=== PATIENT | female | born 1945 | race Caucasian/White ===

== ENCOUNTER 2020-09-21 14:28 | Inpatient (IN) | payer MEDICARE ==
[~2020-09-21] VITALS: Ht 160 cm; Wt 92.3 kg
[~2020-09-21 14:28] MED LIST: FERR325T3 PO; LEVO150T5 PO; METO50TA6 PO; NAPR1TAB25 PO; NAPR220T70 PO; SIMV40TA18 PO; TRIA1TAB3 PO
[2020-09-21] MEDS ORDERED: fentaNYL PF VIAL 100 MCG/2 ML VIAL IVP ONE (15:15)
[2020-09-21] MEDS ORDERED: IV NORMAL SALINE 1000ML BAG 1,000 ML IV ONE (15:15)
[2020-09-21 15:29] LABS: BASO # 0.1 x10^3/uL (0.0-0.2); BASO % 1 % (0-3); EOS # 0.2 x10^3/uL (0.0-0.7); EOS % 2 % (0-3); HEMATOCRIT 47.2 % (36.0-47.0); HEMOGLOBIN 16.2 g/dL (12.0-15.5); LYMPH # 1.7 x10^3/uL (1.0-4.8); LYMPH % 24 % (24-48); MEAN CORPUSCULAR HEMOGLOBIN 32 pg (25-35); MEAN CORPUSCULAR HGB CONC 34 g/dL (31-37); MEAN CORPUSCULAR VOLUME 94 fL (79-100); MONO # 0.5 x10^3/uL (0.0-1.1); MONO % 8 % (0-9); NEUT # 4.5 x10^3/uL (1.8-7.7); NEUT % 65 % (31-73); PLATELET COUNT 191 x10^3/uL (140-400); RED BLOOD COUNT 5.01 x10^6/uL (3.50-5.40); RED CELL DISTRIBUTION WIDTH 12.5 % (11.5-14.5); WHITE BLOOD COUNT 6.9 x10^3/uL (4.0-11.0)
[2020-09-21 15:45] LABS: CALCIUM 9.8 mg/dL (8.5-10.1); CREATININE 1.1 mg/dL (0.6-1.0); GFR 48.2; POTASSIUM 3.8 mmol/L (3.5-5.1)
[2020-09-21 15:51] LABS: ALBUMIN 4.1 g/dL (3.4-5.0); ALBUMIN/GLOBULIN RATIO 1.1 (1.0-1.7); MAGNESIUM 2.1 mg/dL (1.8-2.4)
[2020-09-21] MEDS ORDERED: IOHEXOL 240 MG/ML 50ML VIAL. PO ONE (16:15)
[2020-09-21] MEDS ORDERED: IOHEXOL 300 MG/ML 100ML VIAL. IV ONE (16:15)
[2020-09-21] MEDS ORDERED: CONTRAST GIVEN. MC PRN (16:30)
[2020-09-21] MEDS ORDERED: MORPHINE SULFATE 4 MG/ML VIAL. IV ONE (17:15)
[2020-09-21] MEDS ORDERED: MORPHINE SULFATE 4 MG/ML VIAL. ONE (17:17)
--- NOTE | 2020-09-21 17:28 | PHYS DOC ---
Past Medical History Past Medical History: High Cholesterol, Hypertension, Hypothyroid Past Surgical History: Other Additional Past Surgical Histo: HEART STENT, COLON/ABDOMINAL SURGERY Smoking Status: Current Every Day Smoker Alcohol Use: Occasionally General Adult EDM: Chief Complaint: ABDOMINAL PAIN HPI: HPI: Patient is a 75 year old female who presented to ER for evaluation of abdominal pain started today. Patient feels nauseous but no vomiting. Patient has history of abdominal surgery in the past, had obstruction. Patient denies any fever, no chest pain, no COVID-19 infection exposure. Review of Systems: Review of Systems: Constitutional: Denies fever or chills. [] Eyes: Denies change in visual acuity. [] HENT: Denies nasal congestion or sore throat. [] Respiratory: Denies cough or shortness of breath. [] Cardiovascular: Denies chest pain or edema. [] GI: Positive abdominal pain, nausea, no vomiting : Denies dysuria. [] Musculoskeletal: Denies back pain or joint pain. [] Integument: Denies rash. [] Neurologic: Denies headache, focal weakness or sensory changes. [] Endocrine: Denies polyuria or polydipsia. [] Lymphatic: Denies swollen glands. [] Psychiatric: Denies depression or anxiety. [] Heart Score: Risk Factors: Risk Factors: DM, Current or recent (<one month) smoker, HTN, HLP, family history of CAD, obesity. Risk Scores: Score 0 - 3: 2.5% MACE over next 6 weeks - Discharge Home Score 4 - 6: 20.3% MACE over next 6 weeks - Admit for Clinical Observation Score 7 - 10: 72.7% MACE over next 6 weeks - Early Invasive Strategies Current Medications: Current Medications Medications (Trade) Dose Ordered Sig/Sushma Start Time Stop Time Status Last Admin Dose Admin Fentanyl Citrate (Fentanyl 2ml Vial) 50 mcg 1X ONCE 09/21/20 15:15 09/21/20 15:16 DC 09/21/20 15:29 50 MCG Info (CONTRAST GIVEN -- Rx MONITORING) 1 each PRN DAILY PRN 09/21/20 16:30 09/23/20 16:29 Iohexol (Omnipaque 240 Mg/ml) 30 ml 1X ONCE 09/21/20 16:15 09/21/20 16:18 DC 09/21/20 16:15 30 ML Iohexol (Omnipaque 300 Mg/ml) 60 ml 1X ONCE 09/21/20 16:15 09/21/20 16:18 DC 09/21/20 16:15 60 ML Morphine Sulfate (Morphine Sulfate) 4 mg STK-MED ONCE 09/21/20 17:17 09/21/20 17:17 DC Sodium Chloride 1,000 ml @ 1,000 mls/hr 1X ONCE 09/21/20 15:15 09/21/20 16:14 DC 09/21/20 15:28 1,000 MLS/HR Allergies: Allergies: Allergies Coded Allergies Type Severity Reaction Last Updated Verified No Known Drug Allergies 09/05/17 No Physical Exam: PE: Constitutional: Well developed, well nourished, no acute distress, non-toxic appearance. [] HENT: Normocephalic, atraumatic, bilateral external ears normal, oropharynx moist, no oral exudates, nose normal. [] Eyes: PERRLA, EOMI, conjunctiva normal, no discharge. [] Neck: Normal range of motion, no tenderness, supple, no stridor. [] Cardiovascular:Heart rate regular rhythm, no murmur [] Lungs & Thorax: Bilateral breath sounds clear to auscultation [] Abdomen: soft, There is tenderness to palpation in periumbillical area, hyperactive bowel sound, no masses, no pulsatile masses. [] Skin: Warm, dry, no erythema, no rash. [] Back: No tenderness, no CVA tenderness. [] Extremities: No tenderness, no cyanosis, no clubbing, ROM intact, no edema. [] Neurologic: Alert and oriented X 3, normal motor function, normal sensory f unction, no focal deficits noted. [] Psychologic: Affect normal, judgement normal, mood normal. [] Current Patient Data: Labs: Laboratory Tests Test 09/21/20 15:06 White Blood Count 6.9 x10^3/uL (4.0-11.0) Red Blood Count 5.01 x10^6/uL (3.50-5.40) Hemoglobin 16.2 g/dL (12.0-15.5) H Hematocrit 47.2 % (36.0-47.0) H Mean Corpuscular Volume 94 fL (79-100) Mean Corpuscular Hemoglobin 32 pg (25-35) Mean Corpuscular Hemoglobin Concent 34 g/dL (31-37) Red Cell Distribution Width 12.5 % (11.5-14.5) Platelet Count 191 x10^3/uL (140-400) Neutrophils (%) (Auto) 65 % (31-73) Lymphocytes (%) (Auto) 24 % (24-48) Monocytes (%) (Auto) 8 % (0-9) Eosinophils (%) (Auto) 2 % (0-3) Basophils (%) (Auto) 1 % (0-3) Neutrophils # (Auto) 4.5 x10^3/uL (1.8-7.7) Lymphocytes # (Auto) 1.7 x10^3/uL (1.0-4.8) Monocytes # (Auto) 0.5 x10^3/uL (0.0-1.1) Eosinophils # (Auto) 0.2 x10^3/uL (0.0-0.7) Basophils # (Auto) 0.1 x10^3/uL (0.0-0.2) Sodium Level 138 mmol/L (136-145) Potassium Level 3.8 mmol/L (3.5-5.1) Chloride Level 102 mmol/L (98-107) Carbon Dioxide Level 30 mmol/L (21-32) Anion Gap 6 (6-14) Blood Urea Nitrogen 22 mg/dL (7-20) H Creatinine 1.1 mg/dL (0.6-1.0) H Estimated GFR (Cockcroft-Gault) 48.2 BUN/Creatinine Ratio 20 (6-20) Glucose Level 98 mg/dL (70-99) Calcium Level 9.8 mg/dL (8.5-10.1) Magnesium Level 2.1 mg/dL (1.8-2.4) Total Bilirubin 1.0 mg/dL (0.2-1.0) Aspartate Amino Transferase (AST) 46 U/L (15-37) H Alanine Aminotransferase (ALT) 54 U/L (14-59) Alkaline Phosphatase 70 U/L (46-116) Total Protein 8.0 g/dL (6.4-8.2) Albumin 4.1 g/dL (3.4-5.0) Albumin/Globulin Ratio 1.1 (1.0-1.7) Lipase 102 U/L (73-393) Laboratory Tests 09/21/20 15:06 Laboratory Tests 09/21/20 15:06 Vital Signs: Vital Signs Date Time Temp Pulse Resp B/P (MAP) Pulse Ox O2 Delivery O2 Flow Rate FiO2 09/21/20 16:46 62 170/75 (106) 97 Room Air 09/21/20 14:50 98.4 16 98.4 EKG: EKG: [] Radiology/Procedures: Radiology/Procedures: [][facility] [address] [place] [address] IMAGING REPORT Signed PATIENT: MARCELLE ARROYO ACCOUNT: [id number] : 1945 LOCATION: ER AGE: 75 SEX: F EXAM STATUS: REG ER ORD. PHYSICIAN: LEFTY VICENTE DO REASON: ABDOMINAL PAIN, HX OF OBSTRUCTION DUE TO ADHESION PROCEDURE: CT ABD PELV W/ORAL&IV CONTRAST CT scan of the abdomen and pelvis with contrast 09/21/2020 CLINICAL HISTORY: Abdominal pain. TECHNIQUE: After the oral administration of contrast and the intravenous administration of 60 cc of Isovue-370 only, contiguous, 2.5 mm axial sections were obtained through the abdomen and pelvis. One or more of the following individualized dose reduction techniques were utilized for this study: 1. Automated exposure control. 2. Adjustment of the mA and/or kV according to patient size. 3. Use of iterative reconstruction technique. FINDINGS: Comparison study is dated 08/28/2017. Images through the lung bases demonstrate minimal dependent subsegmental atelectasis bilaterally. Small largely calcified granulomas are seen scattered throughout the right middle and right lower lobe. These measure 2 mm to 4 mm in size. The liver parenchyma has a decreased attenuation consistent with fatty infiltration. The spleen, pancreas, adrenal glands and kidneys are within normal limits. Atherosclerotic calcification of the abdominal aorta is seen. The abdominal aorta tapers normally. Surgical clips are seen within the gallbladder fossa consistent with a cholecystectomy. No free fluid or free air is seen within the abdomen. An umbilical hernia is seen which contains nondilated transverse colon. It measures 6.2 cm in diameter. Dilatation of the jejunum is seen without definite evidence of bowel obstruction. The patient appears to be post hemicolectomy. An anastomosis is seen involving the ileum with the mid transverse colon. Images through the pelvis demonstrate the urinary bladder distended with urine. The patient appears to be post hysterectomy. No adnexal mass is seen. No free fluid is noted. Calcifications are seen within the left pelvis consistent with phleboliths. Minimal S-shaped curvature of the thoracolumbar spine is seen. Degenerative changes are seen involving lower thoracic and throughout the lumbar spine along with both hips. IMPRESSION: Dilated jejunal loops are seen within the mid/lower abdomen which could reflect an ileus. There is no evidence of bowel obstruction. No additional acute abnormality is seen. Electronically signed by: Kraig Cho MD (09/21/2020 5:34 PM) [id number] DICTATED and SIGNED BY: KRAIG CHO MD DATE: 09/21/20 [id number] 0 Course & Med Decision Making: Course & Med Decision Making Pertinent Labs and Imaging studies reviewed. (See chart for details) Patient is a 75-year-old female who presented to ER for evaluation abdominal pain. CT scan showed an ileus, no obstruction. Patient is still having a lot of abdominal pain despite pain medication. We will admit her to the hospital for pain control. Dragon Disclaimer: Dragon Disclaimer: This electronic medical record was generated, in whole or in part, using a voice recognition dictation system. Departure Departure Impression: Primary Impression: Abdominal pain Additional Impression: Ileus Disposition: 09 ADMITTED INPT THIS HOSP Admitting Physician: MARGARET (DR. MCCRAY) Condition: STABLE Referrals: LEFTY HEALY MD (PCP) LEFTY VICENTE DO Sep 21, 2020 17:28
--- NOTE | 2020-09-21 17:36 | RAD ---
CT scan of the abdomen and pelvis with contrast 09/21/2020 CLINICAL HISTORY: Abdominal pain. TECHNIQUE: After the oral administration of contrast and the intravenous administration of 60 cc of I sovue-370 only, contiguous, 2.5 mm axial sections were obtained through the abdomen and pelvis. One or more of the following individualized dose reduction techniques were utilized for this study: 1. Automated exposure control. 2. Adjustment of the mA and/or kV according to patient size. 3. Use of iterative reconstruction technique. FINDINGS: Comparison study is dated 08/28/2017. Images through the lung bases demonstrate minimal dependent subsegmental atelectasis bilaterally. Sma ll largely calcified granulomas are seen scattered throughout the right middle and right lower lobe. These measure 2 mm to 4 mm in size. The liver parenchyma has a decreased attenuation consistent with fatty infiltration. The spleen, panc reas, adrenal glands and kidneys are within normal limits. Atherosclerotic calcification of the abdominal aorta is seen. The abdominal aorta tapers normally. Lozano rgical clips are seen within the gallbladder fossa consistent with a cholecystectomy. No free fluid o r free air is seen within the abdomen. An umbilical hernia is seen which contains nondilated transver se colon. It measures 6.2 cm in diameter. Dilatation of the jejunum is seen without definite evidence of bowel obstruction. The patient appears to be post hemicolectomy. An anastomosis is seen involving the ileum with the mid transverse colon. Images through the pelvis demonstrate the urinary bladder distended with urine. The patient appears t o be post hysterectomy. No adnexal mass is seen. No free fluid is noted. Calcifications are seen with in the left pelvis consistent with phleboliths. Minimal S-shaped curvature of the thoracolumbar spine is seen. Degenerative changes are seen involving lower thoracic and throughout the lumbar spine talita g with both hips. IMPRESSION: Dilated jejunal loops are seen within the mid/lower abdomen which could reflect an ileus. There is no evidence of bowel obstruction. No additional acute abnormality is seen. Electronically signed by: Kraig Cho MD (09/21/2020 5:34 PM) [id number]
[2020-09-21] MEDS ORDERED: ONDANSETRON PF 4 MG/2 ML VIAL. IV PRN (18:30)
[2020-09-21 20:10] VITALS: BP 122/54
[2020-09-21] MEDS: IV NORMAL SALINE 1000ML BAG 1,000 ML IV SCH (20:49)
[2020-09-21 23:15] VITALS: BP 102/61
[2020-09-22 03:16] VITALS: BP 114/64
[2020-09-22 07:08] VITALS: BP 119/64
--- NOTE | 2020-09-22 08:17 | PDOC1 ---
History and Physical Date of Service: DOS: DATE: 09/22/20 TIME: 08:14 Chief Complaint: Chief Complain: Abdominal pain History of Present Illness: HPI: 75 year old female who presented to ER for evaluation of abdominal pain started today. Patient feels nauseous but no vomiting. Patient has history of abdominal surgery in the past, had obstruction. Patient denies any fever, no chest pain, no COVID-19 infection exposure. Past Medical/Surgical History: PMH/PSH: Past Medical History: High Cholesterol, Hypertension, Hypothyroid Past Surgical History: HEART STENT, COLON/ABDOMINAL SURGERY Allergies: Allergies: Coded Allergies: No Known Drug Allergies (Unverified , 09/05/17) Family History: Family History: Reviewed with lung cancer and kidney disease in the family Social History: Social History: Smoking Status: Current Every Day Smoker Alcohol Use: Occasionally Current Medications: Current Medications Current Medications Sodium Chloride 1,000 ml @ 1,000 mls/hr 1X ONCE IV Last administered on 09/21/20at 15:28; Start 09/21/20 at 15:15; Stop 09/21/20 at 16:14; Status DC Fentanyl Citrate (Fentanyl 2ml Vial) 50 mcg 1X ONCE IVP Last administered on 09/21/20at 15:29; Start 09/21/20 at 15:15; Stop 09/21/20 at 15:16; Status DC Iohexol (Omnipaque 240 Mg/ml) 30 ml 1X ONCE PO Last administered on 09/21/20at 16:15; Start 09/21/20 at 16:15; Stop 09/21/20 at 16:18; Status DC Iohexol (Omnipaque 300 Mg/ml) 60 ml 1X ONCE IV Last administered on 09/21/20at 16:15; Start 09/21/20 at 16:15; Stop 09/21/20 at 16:18; Status DC Info (CONTRAST GIVEN -- Rx MONITORING) 1 each PRN DAILY PRN MC SEE COMMENTS; Start 09/21/20 at 16:30; Stop 09/23/20 at 16:29 Morphine Sulfate (Morphine Sulfate) 4 mg 1X ONCE IV Last administered on 09/21/20at 17:19; Start 09/21/20 at 17:15; Stop 09/21/20 at 17:16; Status DC Morphine Sulfate (Morphine Sulfate) 4 mg STK-MED ONCE .ROUTE ; Start 09/21/20 at 17:17; Stop 09/21/20 at 17:17; Status DC Ondansetron HCl (Zofran) 4 mg PRN Q8HRS PRN IV NAUSEA/VOMITING; Start 09/21/20 at 18:30; Stop 09/22/20 at 18:29 Morphine Sulfate (Morphine Sulfate) 4 mg PRN Q2HR PRN IV PAIN; Start 09/21/20 at 18:30; Stop 09/25/20 at 09:00 Sodium Chloride 1,000 ml @ 75 mls/hr [id number] IV Last administered on 09/21/20at 20:49; Start 09/21/20 at 18:30; Stop 09/22/20 at 18:29 Active Scripts Active Reported Triamterene-Hctz 37.5-25 Mg Tb (Triamterene/Hydrochlorothiazid) 1 Each Tablet 1 Tab PO DAILY Check BP daily, may resume if BP 120/80. Follow up with Primary Care doctor. Metoprolol Tartrate 50 Mg Tablet 50 Mg PO DAILY Check BP daily, may resume if BP 120/80. Follow up with Primary Care doctor. Simvastatin 40 Mg Tablet 40 Mg PO HS LAST DOSE GIVEN: DATE:04/18/16 TIME:9:00 p.m. NEXT DOSE DUE: DATE:04/19/16 TIME:9:00 p.m. Levothyroxine Sodium 150 Mcg Tablet 150 Mcg PO DAILYAC LAST DOSE GIVEN: DATE:04/19/16 TIME:7:30 a.m. NEXT DOSE DUE: DATE:04/20/16 TIME:7:30 a.m. ROS: Review of Systems Review of System REVIEW OF SYSTEMS: GENERAL: Denies weakness SKIN: No bruising, hair changes or rashes. EYES: No blurred, double or loss of vision. NOSE AND THROAT: No history of nosebleeds, hoarseness or sore throat. HEART: No history of palpitations, chest pain or shortness of breath on exertion. LUNGS: Denies cough, hemoptysis, wheezing or shortness of breath. GASTROINTESTINAL: Denies changes in appetite, nausea, vomiting, diarrhea or constipation. GENITOURINARY: No history of frequency, urgency, hesitancy or nocturia. NEUROLOGIC: Denies history of numbness, tingling, or tremor. PSYCHIATRIC: No history of panic, anxiety or depression. ENDOCRINE: No history of heat or cold intolerance, polyuria or polydipsia. EXTREMITIES: Denies joint pain, pain on walking or stiffness. Physical Exam: Vital Signs: Vital Signs Date Time Temp Pulse Resp B/P (MAP) Pulse Ox O2 Delivery O2 Flow Rate FiO2 09/22/20 07:08 97.7 63 18 119/64 (82) 93 Room Air 97.7 Physcial Exam: GEN: No apparent distress. Alert and oriented HEENT: Normal cephalic, atraumatic, external auditory canals are patent EYES: Extraocular muscles are intact, pupil are equally round and reactive to light and accommodation MUSCULOSKELETAL: Well developed , well nourished, good range of motion ENDOCRINE: No thyromegaly was palpated LYMPHATICS: No cervical chain or axillary nodes were noted HEMATOPOIETIC: No bruising NECK: Supple, no JVD, no thyromegaly was noted LUNGS: Clear to auscultation in all lung bradshaw without rhonchi or wheezing HEART: RRR, S!, S2 present. Peripheral pulses intact, no obvious murmurs noted ABDOMEN: Soft, nontender. Positive bowel sounds, no organomegaly, normal bowel sounds EXTREMITIES: Without clubbing, cyanosis, or edema. Pedal pulses intact. Negative Homans sign NEUROLOGIC: Normal speech and tone. A&O x 3, moves all extremities, no obvious focal deficits PSYCHIATRIC: Normal affect, normal mood. Stable SKIN: No ulcerations or rashes, good skin turgor, no jaundice VASCULAR: Good capillary refill, neurovascular bundle appears to be intact Labs: Labs: Laboratory Tests Test 09/21/20 15:06 09/21/20 21:04 White Blood Count 6.9 x10^3/uL (4.0-11.0) Red Blood Count 5.01 x10^6/uL (3.50-5.40) Hemoglobin 16.2 g/dL (12.0-15.5) Hematocrit 47.2 % (36.0-47.0) Mean Corpuscular Volume 94 fL (79-100) Mean Corpuscular Hemoglobin 32 pg (25-35) Mean Corpuscular Hemoglobin Concent 34 g/dL (31-37) Red Cell Distribution Width 12.5 % (11.5-14.5) Platelet Count 191 x10^3/uL (140-400) Neutrophils (%) (Auto) 65 % (31-73) Lymphocytes (%) (Auto) 24 % (24-48) Monocytes (%) (Auto) 8 % (0-9) Eosinophils (%) (Auto) 2 % (0-3) Basophils (%) (Auto) 1 % (0-3) Neutrophils # (Auto) 4.5 x10^3/uL (1.8-7.7) Lymphocytes # (Auto) 1.7 x10^3/uL (1.0-4.8) Monocytes # (Auto) 0.5 x10^3/uL (0.0-1.1) Eosinophils # (Auto) 0.2 x10^3/uL (0.0-0.7) Basophils # (Auto) 0.1 x10^3/uL (0.0-0.2) Sodium Level 138 mmol/L (136-145) Potassium Level 3.8 mmol/L (3.5-5.1) Chloride Level 102 mmol/L (98-107) Carbon Dioxide Level 30 mmol/L (21-32) Anion Gap 6 (6-14) Blood Urea Nitrogen 22 mg/dL (7-20) Creatinine 1.1 mg/dL (0.6-1.0) Estimated GFR (Cockcroft-Gault) 48.2 BUN/Creatinine Ratio 20 (6-20) Glucose Level 98 mg/dL (70-99) Calcium Level 9.8 mg/dL (8.5-10.1) Magnesium Level 2.1 mg/dL (1.8-2.4) Total Bilirubin 1.0 mg/dL (0.2-1.0) Aspartate Amino Transf (AST/SGOT) 46 U/L (15-37) Alanine Aminotransferase (ALT/SGPT) 54 U/L (14-59) Alkaline Phosphatase 70 U/L (46-116) Total Protein 8.0 g/dL (6.4-8.2) Albumin 4.1 g/dL (3.4-5.0) Albumin/Globulin Ratio 1.1 (1.0-1.7) Lipase 102 U/L (73-393) SARS-CoV-2 Antigen (Rapid) Negative (NEGATIVE) Laboratory Tests Test 09/21/20 15:06 09/21/20 21:04 White Blood Count 6.9 x10^3/uL (4.0-11.0) Red Blood Count 5.01 x10^6/uL (3.50-5.40) Hemoglobin 16.2 g/dL (12.0-15.5) Hematocrit 47.2 % (36.0-47.0) Mean Corpuscular Volume 94 fL (79-100) Mean Corpuscular Hemoglobin 32 pg (25-35) Mean Corpuscular Hemoglobin Concent 34 g/dL (31-37) Red Cell Distribution Width 12.5 % (11.5-14.5) Platelet Count 191 x10^3/uL (140-400) Neutrophils (%) (Auto) 65 % (31-73) Lymphocytes (%) (Auto) 24 % (24-48) Monocytes (%) (Auto) 8 % (0-9) Eosinophils (%) (Auto) 2 % (0-3) Basophils (%) (Auto) 1 % (0-3) Neutrophils # (Auto) 4.5 x10^3/uL (1.8-7.7) Lymphocytes # (Auto) 1.7 x10^3/uL (1.0-4.8) Monocytes # (Auto) 0.5 x10^3/uL (0.0-1.1) Eosinophils # (Auto) 0.2 x10^3/uL (0.0-0.7) Basophils # (Auto) 0.1 x10^3/uL (0.0-0.2) Sodium Level 138 mmol/L (136-145) Potassium Level 3.8 mmol/L (3.5-5.1) Chloride Level 102 mmol/L (98-107) Carbon Dioxide Level 30 mmol/L (21-32) Anion Gap 6 (6-14) Blood Urea Nitrogen 22 mg/dL (7-20) Creatinine 1.1 mg/dL (0.6-1.0) Estimated GFR (Cockcroft-Gault) 48.2 BUN/Creatinine Ratio 20 (6-20) Glucose Level 98 mg/dL (70-99) Calcium Level 9.8 mg/dL (8.5-10.1) Magnesium Level 2.1 mg/dL (1.8-2.4) Total Bilirubin 1.0 mg/dL (0.2-1.0) Aspartate Amino Transf (AST/SGOT) 46 U/L (15-37) Alanine Aminotransferase (ALT/SGPT) 54 U/L (14-59) Alkaline Phosphatase 70 U/L (46-116) Total Protein 8.0 g/dL (6.4-8.2) Albumin 4.1 g/dL (3.4-5.0) Albumin/Globulin Ratio 1.1 (1.0-1.7) Lipase 102 U/L (73-393) SARS-CoV-2 Antigen (Rapid) Negative (NEGATIVE) Images: Images CT abdomen pelvis IMPRESSION: Dilated jejunal loops are seen within the mid/lower abdomen which could reflect an ileus. There is no evidence of bowel obstruction. No additional acute abnormality is seen. Assessment/Plan Assessment/Plan Acute abdominal pain due to ileus versus SBO Polycythemia Prerenal azotemia ESPERANZA due to vasomotor nephropathy Admit to medicine for further management General surgery consult N.p.o. Continue IV fluids Serial abdominal exams Lovenox for DVT prophylaxis Protonix GI prophylaxis ADA diet Full code Discussed with RN and SW Disposition pending surgical evaluation Surrogate decision maker is the Justifications for Admission Other Justification CHRISTY TELLO MD Sep 22, 2020 08:16
--- NOTE | 2020-09-22 08:46 | PDOC2 ---
KORINA SHELTON [employer]URING CHIEF ENGINEER 09/22/20 0846: CONSULT Date of Consult Date of Consult DATE: 09/22/20 TIME: 08:40 Reason for Consult Reason for Consult: ileus Referring Physician Referring Physician: ER Identification/Chief Complaint Chief Complaint abdominal pain Source Source: Chart review, Patient History of Present Illness Reason for Visit: Admitted with acute abdominal pain, upper abdomen. Some constipation, did have a stool yesterday AM. No nausea or vomiting Currently does feel better no flatus hx of colon resection, has had obstruction requiring ng decompression Past Medical History Cardiovascular: HTN, Hyperlipidemia Endocrine: Hypothyroidism Past Surgical History Past Surgical History: Hernia Repair, Hysterectomy, Colon Resection Family History Family History: Cancer, Diabetes Social History ALCOHOL: rare Drugs: None Current Problem List Problem List Problems Medical Problems: (1) Abdominal pain Status: Acute (2) Ileus Status: Acute Current Medications Current Medications Current Medications Sodium Chloride 1,000 ml @ 1,000 mls/hr 1X ONCE IV Last administered on 09/21/20at 15:28; Start 09/21/20 at 15:15; Stop 09/21/20 at 16:14; Status DC Fentanyl Citrate (Fentanyl 2ml Vial) 50 mcg 1X ONCE IVP Last administered on 09/21/20at 15:29; Start 09/21/20 at 15:15; Stop 09/21/20 at 15:16; Status DC Iohexol (Omnipaque 240 Mg/ml) 30 ml 1X ONCE PO Last administered on 09/21/20at 16:15; Start 09/21/20 at 16:15; Stop 09/21/20 at 16:18; Status DC Iohexol (Omnipaque 300 Mg/ml) 60 ml 1X ONCE IV Last administered on 09/21/20at 16:15; Start 09/21/20 at 16:15; Stop 09/21/20 at 16:18; Status DC Info (CONTRAST GIVEN -- Rx MONITORING) 1 each PRN DAILY PRN MC SEE COMMENTS; Start 09/21/20 at 16:30; Stop 09/23/20 at 16:29 Morphine Sulfate (Morphine Sulfate) 4 mg 1X ONCE IV Last administered on 09/21/20at 17:19; Start 09/21/20 at 17:15; Stop 09/21/20 at 17:16; Status DC Morphine Sulfate (Morphine Sulfate) 4 mg STK-MED ONCE .ROUTE ; Start 09/21/20 at 17:17; Stop 09/21/20 at 17:17; Status DC Ondansetron HCl (Zofran) 4 mg PRN Q8HRS PRN IV NAUSEA/VOMITING; Start 09/21/20 at 18:30; Stop 09/22/20 at 18:29 Morphine Sulfate (Morphine Sulfate) 4 mg PRN Q2HR PRN IV PAIN; Start 09/21/20 at 18:30; Stop 09/25/20 at 09:00 Sodium Chloride 1,000 ml @ 75 mls/hr [id number] IV Last administered on 09/21/20at 20:49; Start 09/21/20 at 18:30; Stop 09/22/20 at 18:29 Active Scripts Active Reported Triamterene-Hctz 37.5-25 Mg Tb (Triamterene/Hydrochlorothiazid) 1 Each Tablet 1 Tab PO DAILY Check BP daily, may resume if BP 120/80. Follow up with Primary Care doctor. Metoprolol Tartrate 50 Mg Tablet 50 Mg PO DAILY Check BP daily, may resume if BP 120/80. Follow up with Primary Care doctor. Simvastatin 40 Mg Tablet 40 Mg PO HS LAST DOSE GIVEN: DATE:04/18/16 TIME:9:00 p.m. NEXT DOSE DUE: DATE:04/19/16 TIME:9:00 p.m. Levothyroxine Sodium 150 Mcg Tablet 150 Mcg PO DAILYAC LAST DOSE GIVEN: DATE:04/19/16 TIME:7:30 a.m. NEXT DOSE DUE: DATE:04/20/16 TIME:7:30 a.m. Allergies Allergies: Coded Allergies: No Known Drug Allergies (Unverified , 09/05/17) ROS General: No: Chills, Other (fevers) PSYCHOLOGICAL ROS: No: Anxiety, Depression Eyes: No Blurry vision, No Double vision HEENT: No: Heacaches, Sore Throat Hematological and Lymphatic: No: Bleeding Problems, Blood Clots Respiratory: No: Cough, Shortness of breath Cardiovascular: No Chest Pain, No Palpitations Gastrointestinal: Yes Other (see hpi) Genitourinary: No Dysuria, No Hematuria Musculoskeletal: No Joint Pain, No Muscle Pain Neurological: No Impaired Coord/balance, No Numbness/Tingling Skin: No Pruritus, No Rash Physical Exam General: Alert, Oriented X3, Cooperative HEENT: Atraumatic, PERRLA Lungs: Clear to auscultation, Normal air movement Heart: Regular rate, Normal S1, Normal S2 Abdomen: Soft, No tenderness, No hepatosplenomegaly Extremities: No clubbing, No cyanosis Skin: No rashes, No breakdown Neuro: Normal gait, Normal speech Psych/Mental Status: Mental status NL, Mood NL MUSCULOSKELETAL: No deformity, No swelling Vitals VITALS Vital Signs Date Time Temp Pulse Resp B/P (MAP) Pulse Ox O2 Delivery O2 Flow Rate FiO2 09/22/20 07:08 97.7 63 18 119/64 (82) 93 Room Air 97.7 Labs Labs Laboratory Tests Test 09/21/20 15:06 09/21/20 21:04 White Blood Count 6.9 x10^3/uL (4.0-11.0) Red Blood Count 5.01 x10^6/uL (3.50-5.40) Hemoglobin 16.2 g/dL (12.0-15.5) Hematocrit 47.2 % (36.0-47.0) Mean Corpuscular Volume 94 fL (79-100) Mean Corpuscular Hemoglobin 32 pg (25-35) Mean Corpuscular Hemoglobin Concent 34 g/dL (31-37) Red Cell Distribution Width 12.5 % (11.5-14.5) Platelet Count 191 x10^3/uL (140-400) Neutrophils (%) (Auto) 65 % (31-73) Lymphocytes (%) (Auto) 24 % (24-48) Monocytes (%) (Auto) 8 % (0-9) Eosinophils (%) (Auto) 2 % (0-3) Basophils (%) (Auto) 1 % (0-3) Neutrophils # (Auto) 4.5 x10^3/uL (1.8-7.7) Lymphocytes # (Auto) 1.7 x10^3/uL (1.0-4.8) Monocytes # (Auto) 0.5 x10^3/uL (0.0-1.1) Eosinophils # (Auto) 0.2 x10^3/uL (0.0-0.7) Basophils # (Auto) 0.1 x10^3/uL (0.0-0.2) Sodium Level 138 mmol/L (136-145) Potassium Level 3.8 mmol/L (3.5-5.1) Chloride Level 102 mmol/L (98-107) Carbon Dioxide Level 30 mmol/L (21-32) Anion Gap 6 (6-14) Blood Urea Nitrogen 22 mg/dL (7-20) Creatinine 1.1 mg/dL (0.6-1.0) Estimated GFR (Cockcroft-Gault) 48.2 BUN/Creatinine Ratio 20 (6-20) Glucose Level 98 mg/dL (70-99) Calcium Level 9.8 mg/dL (8.5-10.1) Magnesium Level 2.1 mg/dL (1.8-2.4) Total Bilirubin 1.0 mg/dL (0.2-1.0) Aspartate Amino Transf (AST/SGOT) 46 U/L (15-37) Alanine Aminotransferase (ALT/SGPT) 54 U/L (14-59) Alkaline Phosphatase 70 U/L (46-116) Total Protein 8.0 g/dL (6.4-8.2) Albumin 4.1 g/dL (3.4-5.0) Albumin/Globulin Ratio 1.1 (1.0-1.7) Lipase 102 U/L (73-393) SARS-CoV-2 Antigen (Rapid) Negative (NEGATIVE) Laboratory Tests Test 09/21/20 15:06 09/21/20 21:04 White Blood Count 6.9 x10^3/uL (4.0-11.0) Red Blood Count 5.01 x10^6/uL (3.50-5.40) Hemoglobin 16.2 g/dL (12.0-15.5) Hematocrit 47.2 % (36.0-47.0) Mean Corpuscular Volume 94 fL (79-100) Mean Corpuscular Hemoglobin 32 pg (25-35) Mean Corpuscular Hemoglobin Concent 34 g/dL (31-37) Red Cell Distribution Width 12.5 % (11.5-14.5) Platelet Count 191 x10^3/uL (140-400) Neutrophils (%) (Auto) 65 % (31-73) Lymphocytes (%) (Auto) 24 % (24-48) Monocytes (%) (Auto) 8 % (0-9) Eosinophils (%) (Auto) 2 % (0-3) Basophils (%) (Auto) 1 % (0-3) Neutrophils # (Auto) 4.5 x10^3/uL (1.8-7.7) Lymphocytes # (Auto) 1.7 x10^3/uL (1.0-4.8) Monocytes # (Auto) 0.5 x10^3/uL (0.0-1.1) Eosinophils # (Auto) 0.2 x10^3/uL (0.0-0.7) Basophils # (Auto) 0.1 x10^3/uL (0.0-0.2) Sodium Level 138 mmol/L (136-145) Potassium Level 3.8 mmol/L (3.5-5.1) Chloride Level 102 mmol/L (98-107) Carbon Dioxide Level 30 mmol/L (21-32) Anion Gap 6 (6-14) Blood Urea Nitrogen 22 mg/dL (7-20) Creatinine 1.1 mg/dL (0.6-1.0) Estimated GFR (Cockcroft-Gault) 48.2 BUN/Creatinine Ratio 20 (6-20) Glucose Level 98 mg/dL (70-99) Calcium Level 9.8 mg/dL (8.5-10.1) Magnesium Level 2.1 mg/dL (1.8-2.4) Total Bilirubin 1.0 mg/dL (0.2-1.0) Aspartate Amino Transf (AST/SGOT) 46 U/L (15-37) Alanine Aminotransferase (ALT/SGPT) 54 U/L (14-59) Alkaline Phosphatase 70 U/L (46-116) Total Protein 8.0 g/dL (6.4-8.2) Albumin 4.1 g/dL (3.4-5.0) Albumin/Globulin Ratio 1.1 (1.0-1.7) Lipase 102 U/L (73-393) SARS-CoV-2 Antigen (Rapid) Negative (NEGATIVE) Assessment/Plan Assessment/Plan ileus bowel rest, observation MARIZA MIRANDA MD 09/25/20 0951: CONSULT Assessment/Plan Assessment/Plan Patient seen and examined by me. No nausea or vomiting. Minimal abd pain. Agree with Yaa's assessment and plan KORINA SHELTON [employer]IEF ENGINEER Sep 22, 2020 08:46 MARIZA MIRANDA MD Sep 25, 2020 09:51
--- NOTE | 2020-09-22 09:41 | NUR ---
SW following. Discussed with RN, pt from home, room air, NPO, Rapid COVID-19 negative. Pt on bowel rest. PT/OT being ordered. RN advised no SW needs at this time. SW will continue to follow.
[2020-09-22] MEDS: IV NORMAL SALINE 1000ML BAG 1,000 ML IV SCH (09:43)
[2020-09-22 10:21] VITALS: BP 137/64
[2020-09-22 14:22] VITALS: BP 116/68
[2020-09-22 19:15] VITALS: BP 130/64
[2020-09-22 22:56] VITALS: BP 128/62
[2020-09-23] MEDS: IV NORMAL SALINE 1000ML BAG 1,000 ML IV SCH ×2 (00:06→11:44)
[2020-09-23] MEDS: MORPHINE SULFATE 4 MG/ML VIAL. IV PRN ×3 (00:31→23:46)
[2020-09-23 02:45] VITALS: BP 118/66
[2020-09-23 07:00] VITALS: BP 122/61
[2020-09-23 11:00] VITALS: BP 119/64
--- NOTE | 2020-09-23 11:16 | PDOC ---
[facility] PROGRESS NOTE Date of Service DOS: DATE: 09/23/20 TIME: 11:14 Chief Complaint Chief Complaint Acute abdominal pain due to ileus versus SBO Polycythemia Prerenal azotemia ESPERANZA due to vasomotor nephropathy Admit to medicine for further management General surgery consult Advance diet as tolerated Continue IV fluids Serial abdominal exams Lovenox for DVT prophylaxis Protonix GI prophylaxis ADA diet Full code Discussed with RN and SW Disposition pending surgical evaluation Surrogate decision maker is the History of Present Illness History of Present Illness 09/23/2020 No acute events overnight. Patient remains afebrile. No bowel movements reported from nursing staff. No complaints voiced at this time. Will advance diet as tolerated. Currently tolerating. Patient's chart, labs, images were reviewed and discussed with RN 75 year old female who presented to ER for evaluation of abdominal pain started today. Patient feels nauseous but no vomiting. Patient has history of abdominal surgery in the past, had obstruction. Patient denies any fever, no chest pain, no COVID-19 infection exposure. Vitals/I&O Vitals/I&O: Vital Signs Date Time Temp Pulse Resp B/P (MAP) Pulse Ox O2 Delivery O2 Flow Rate FiO2 09/23/20 08:10 Room Air 09/23/20 07:00 98.2 64 18 122/61 (81) 93 98.2 I & O 09/22/20 09/22/20 09/23/20 15:00 23:00 07:00 Output Total 400 ml 250 ml Balance -400 ml -250 ml Physical Exam General: Alert, Oriented X3, Cooperative Heart: Regular rate, Normal S1, Normal S2 Abdomen: Soft, No tenderness, No hepatosplenomegaly Extremities: No clubbing, No cyanosis Skin: No rashes, No breakdown Assessment and Plan Assessmemt and Plan Problems Medical Problems: (1) Abdominal pain Status: Acute (2) Ileus Status: Acute Comment Review of Relevant I have reviewed the following items gurdeep (where applicable) has been applied. Medications: Current Medications Medications (Trade) Dose Ordered Sig/Sushma Route PRN Reason Start Time Stop Time Status Last Admin Dose Admin Sodium Chloride 1,000 ml @ 75 mls/hr [id number] IV 09/22/20 23:45 09/23/20 00:06 Justifications for Admission Other Justification CHRISTY TELLO MD Sep 23, 2020 11:16
--- NOTE | 2020-09-23 12:44 | PDOC ---
PROGRESS NOTES Date of Service DATE: 09/23/20 TIME: 12:43 Subjective Subjective had some pain yesterday, no nausea/vomiting, no flatus or stool Objective Objective Vital Signs Date Time Temp Pulse Resp B/P (MAP) Pulse Ox O2 Delivery O2 Flow Rate FiO2 09/23/20 11:00 98.3 68 18 119/64 (82) 95 Room Air 98.3 Intake and Output 09/23/20 07:00 Output Total 650 ml Balance -650 ml Output Urine Total 650 ml Physical Exam Abdomen: Soft, No tenderness Heart: Regular rate Extremities: No clubbing, No cyanosis General: Alert, Oriented X3 Neuro: Normal speech Psych/Mental Status: Mental status NL Assessment Assessment Problems Medical Problems: (1) Abdominal pain Status: Acute (2) Ileus Status: Acute Plan Plan of Care Continue supportive care, serial exam/xrays Comment Review of Relevant I have reviewed the following items gurdeep (where applicable) has been applied. Labs Laboratory Tests Test 09/21/20 15:06 09/21/20 21:04 White Blood Count 6.9 x10^3/uL (4.0-11.0) Red Blood Count 5.01 x10^6/uL (3.50-5.40) Hemoglobin 16.2 g/dL (12.0-15.5) Hematocrit 47.2 % (36.0-47.0) Mean Corpuscular Volume 94 fL (79-100) Mean Corpuscular Hemoglobin 32 pg (25-35) Mean Corpuscular Hemoglobin Concent 34 g/dL (31-37) Red Cell Distribution Width 12.5 % (11.5-14.5) Platelet Count 191 x10^3/uL (140-400) Neutrophils (%) (Auto) 65 % (31-73) Lymphocytes (%) (Auto) 24 % (24-48) Monocytes (%) (Auto) 8 % (0-9) Eosinophils (%) (Auto) 2 % (0-3) Basophils (%) (Auto) 1 % (0-3) Neutrophils # (Auto) 4.5 x10^3/uL (1.8-7.7) Lymphocytes # (Auto) 1.7 x10^3/uL (1.0-4.8) Monocytes # (Auto) 0.5 x10^3/uL (0.0-1.1) Eosinophils # (Auto) 0.2 x10^3/uL (0.0-0.7) Basophils # (Auto) 0.1 x10^3/uL (0.0-0.2) Sodium Level 138 mmol/L (136-145) Potassium Level 3.8 mmol/L (3.5-5.1) Chloride Level 102 mmol/L (98-107) Carbon Dioxide Level 30 mmol/L (21-32) Anion Gap 6 (6-14) Blood Urea Nitrogen 22 mg/dL (7-20) Creatinine 1.1 mg/dL (0.6-1.0) Estimated GFR (Cockcroft-Gault) 48.2 BUN/Creatinine Ratio 20 (6-20) Glucose Level 98 mg/dL (70-99) Calcium Level 9.8 mg/dL (8.5-10.1) Magnesium Level 2.1 mg/dL (1.8-2.4) Total Bilirubin 1.0 mg/dL (0.2-1.0) Aspartate Amino Transf (AST/SGOT) 46 U/L (15-37) Alanine Aminotransferase (ALT/SGPT) 54 U/L (14-59) Alkaline Phosphatase 70 U/L (46-116) Total Protein 8.0 g/dL (6.4-8.2) Albumin 4.1 g/dL (3.4-5.0) Albumin/Globulin Ratio 1.1 (1.0-1.7) Lipase 102 U/L (73-393) Thyroid Stimulating Hormone (TSH) 0.215 uIU/mL (0.358-3.74) SARS-CoV-2 Antigen (Rapid) Negative (NEGATIVE) Medications Current Medications Sodium Chloride 1,000 ml @ 1,000 mls/hr 1X ONCE IV Last administered on 09/21/20at 15:28; Start 09/21/20 at 15:15; Stop 09/21/20 at 16:14; Status DC Fentanyl Citrate (Fentanyl 2ml Vial) 50 mcg 1X ONCE IVP Last administered on 09/21/20at 15:29; Start 09/21/20 at 15:15; Stop 09/21/20 at 15:16; Status DC Iohexol (Omnipaque 240 Mg/ml) 30 ml 1X ONCE PO Last administered on 09/21/20at 16:15; Start 09/21/20 at 16:15; Stop 09/21/20 at 16:18; Status DC Iohexol (Omnipaque 300 Mg/ml) 60 ml 1X ONCE IV Last administered on 09/21/20at 16:15; Start 09/21/20 at 16:15; Stop 09/21/20 at 16:18; Status DC Info (CONTRAST GIVEN -- Rx MONITORING) 1 each PRN DAILY PRN MC SEE COMMENTS; Start 09/21/20 at 16:30; Stop 09/23/20 at 16:29 Morphine Sulfate (Morphine Sulfate) 4 mg 1X ONCE IV Last administered on 09/21/20at 17:19; Start 09/21/20 at 17:15; Stop 09/21/20 at 17:16; Status DC Morphine Sulfate (Morphine Sulfate) 4 mg STK-MED ONCE .ROUTE ; Start 09/21/20 at 17:17; Stop 09/21/20 at 17:17; Status DC Ondansetron HCl (Zofran) 4 mg PRN Q8HRS PRN IV NAUSEA/VOMITING; Start 09/21/20 at 18:30; Stop 09/22/20 at 18:29; Status DC Morphine Sulfate (Morphine Sulfate) 4 mg PRN Q2HR PRN IV PAIN Last administered on 09/23/20at 00:31; Start 09/21/20 at 18:30; Stop 09/25/20 at 09:00 Sodium Chloride 1,000 ml @ 75 mls/hr [id number] IV Last administered on 09/22/20at 09:43; Start 09/21/20 at 18:30; Stop 09/22/20 at 18:29; Status DC Sodium Chloride 1,000 ml @ 75 mls/hr [id number] IV Last administered on 09/23/20at 11:44; Start 09/22/20 at 23:45 Active Scripts Active Reported Triamterene-Hctz 37.5-25 Mg Tb (Triamterene/Hydrochlorothiazid) 1 Each Tablet 1 Tab PO DAILY Check BP daily, may resume if BP 120/80. Follow up with Primary Care doctor. Metoprolol Tartrate 50 Mg Tablet 50 Mg PO DAILY Check BP daily, may resume if BP 120/80. Follow up with Primary Care doctor. Simvastatin 40 Mg Tablet 40 Mg PO HS LAST DOSE GIVEN: DATE:04/18/16 TIME:9:00 p.m. NEXT DOSE DUE: DATE:04/19/16 TIME:9:00 p.m. Levothyroxine Sodium 150 Mcg Tablet 150 Mcg PO DAILYAC LAST DOSE GIVEN: DATE:04/19/16 TIME:7:30 a.m. NEXT DOSE DUE: DATE:04/20/16 TIME:7:30 a.m. Vitals/I & O Vital Sign - Last 24 Hours 09/22/20 09/22/20 09/22/20 09/22/20 14:22 19:15 20:00 22:56 Temp 98.0 97.8 97.6 98.0 97.8 97.6 Pulse 67 62 64 Resp 18 18 18 B/P (MAP) 116/68 (84) 130/64 (86) 128/62 (84) Pulse Ox 94 92 92 O2 Delivery Room Air Room Air Room Air Room Air 09/23/20 09/23/20 09/23/20 09/23/20 00:31 01:01 02:45 07:00 Temp 97.5 98.2 97.5 98.2 Pulse 67 64 Resp 20 20 18 18 B/P (MAP) 118/66 (83) 122/61 (81) Pulse Ox 92 94 94 93 O2 Delivery Room Air Room Air Room Air Room Air 09/23/20 09/23/20 08:10 11:00 Temp 98.3 98.3 Pulse 68 Resp 18 B/P (MAP) 119/64 (82) Pulse Ox 95 O2 Delivery Room Air Room Air Intake and Output 09/22/20 09/22/20 09/23/20 15:00 23:00 07:00 Output Total 400 ml 250 ml Balance -400 ml -250 ml Justifications for Admission Other Justification DAMARIS BOWLES MD Sep 23, 2020 12:44
[2020-09-23 15:00] VITALS: BP 118/66
[2020-09-23 19:00] VITALS: BP 132/62
[2020-09-23 23:00] VITALS: BP 112/53
[2020-09-24] MEDS: IV NORMAL SALINE 1000ML BAG 1,000 ML IV SCH ×2 (01:04→14:48)
[2020-09-24 03:43] VITALS: BP 146/65
[2020-09-24 07:00] VITALS: BP 133/63
--- NOTE | 2020-09-24 09:37 | PDOC ---
[employer] PROGRESS NOTE Date of Service DOS: DATE: 09/24/20 TIME: 09:35 Chief Complaint Chief Complaint Acute abdominal pain due to ileus versus SBO Polycythemia Prerenal azotemia ESPERANZA due to vasomotor nephropathy Admit to medicine for further management General surgery consult Advance diet as tolerated Continue IV fluids Serial abdominal exams Lovenox for DVT prophylaxis Protonix GI prophylaxis ADA diet Full code Discussed with RN and SW Disposition pending surgical evaluation Surrogate decision maker is the History of Present Illness History of Present Illness 09/24/2020 No acute events overnight. Patient seen and examined bedside. Remains afebrile. Patient sitting at the side of bed and just had a bowel movement this morning. Will attempt to advance diet if okay with surgery. Patient's chart, labs, images were reviewed and discussed with RN 09/23/2020 No acute events overnight. Patient remains afebrile. No bowel movements reported from nursing staff. No complaints voiced at this time. Will advance diet as tolerated. Currently tolerating. Patient's chart, labs, images were reviewed and discussed with RN 75 year old female who presented to ER for evaluation of abdominal pain started today. Patient feels nauseous but no vomiting. Patient has history of abdominal surgery in the past, had obstruction. Patient denies any fever, no chest pain, no COVID-19 infection exposure. Vitals/I&O Vitals/I&O: Vital Signs Date Time Temp Pulse Resp B/P (MAP) Pulse Ox O2 Delivery O2 Flow Rate FiO2 09/24/20 07:00 98.0 80 18 133/63 (86) 95 Room Air 98.0 I & O 09/23/20 09/23/20 09/24/20 15:00 23:00 07:00 Output Total 600 ml Balance -600 ml Physical Exam General: Alert, Oriented X3 Heart: Regular rate Abdomen: Soft, No tenderness Extremities: No clubbing, No cyanosis Skin: No rashes, No breakdown Assessment and Plan Assessmemt and Plan Problems Medical Problems: (1) Abdominal pain Status: Acute (2) Ileus Status: Acute Comment Review of Relevant I have reviewed the following items gurdeep (where applicable) has been applied. Justifications for Admission Other Justification CHRISTY TELLO MD Sep 24, 2020 09:37
[2020-09-24] MEDS: MORPHINE SULFATE 4 MG/ML VIAL. IV PRN ×2 (09:52→21:30)
[2020-09-24 10:33] LABS: CALCIUM 8.6 mg/dL (8.5-10.1); CREATININE 0.8 mg/dL (0.6-1.0); GFR 69.6; MAGNESIUM 1.9 mg/dL (1.8-2.4); POTASSIUM 3.8 mmol/L (3.5-5.1)
--- NOTE | 2020-09-24 10:47 | PDOC ---
PROGRESS NOTES Date of Service DATE: 09/24/20 TIME: 10:46 Subjective Subjective had a stool Objective Objective Vital Signs Date Time Temp Pulse Resp B/P (MAP) Pulse Ox O2 Delivery O2 Flow Rate FiO2 09/24/20 09:52 Room Air 09/24/20 07:00 98.0 80 18 133/63 (86) 95 98.0 Intake and Output 09/24/20 07:00 Output Total 600 ml Balance -600 ml Output Urine Total 600 ml Physical Exam Abdomen: Soft, No tenderness Extremities: No clubbing, No cyanosis General: Alert, Oriented X3 Neuro: Normal speech Psych/Mental Status: Mental status NL Assessment Assessment Problems Medical Problems: (1) Abdominal pain Status: Acute (2) Ileus Status: Acute Plan Plan of Care Pt had a stool, KUB shows contrast in distal colon, final report pending. Will start clears. Comment Review of Relevant I have reviewed the following items gurdeep (where applicable) has been applied. Labs Laboratory Tests Test 09/24/20 09:50 Sodium Level 142 mmol/L (136-145) Potassium Level 3.8 mmol/L (3.5-5.1) Chloride Level 108 mmol/L (98-107) Carbon Dioxide Level 22 mmol/L (21-32) Anion Gap 12 (6-14) Blood Urea Nitrogen 14 mg/dL (7-20) Creatinine 0.8 mg/dL (0.6-1.0) Estimated GFR (Cockcroft-Gault) 69.6 Glucose Level 82 mg/dL (70-99) Calcium Level 8.6 mg/dL (8.5-10.1) Magnesium Level 1.9 mg/dL (1.8-2.4) Laboratory Tests Test 09/24/20 09:50 Sodium Level 142 mmol/L (136-145) Potassium Level 3.8 mmol/L (3.5-5.1) Chloride Level 108 mmol/L (98-107) Carbon Dioxide Level 22 mmol/L (21-32) Anion Gap 12 (6-14) Blood Urea Nitrogen 14 mg/dL (7-20) Creatinine 0.8 mg/dL (0.6-1.0) Estimated GFR (Cockcroft-Gault) 69.6 Glucose Level 82 mg/dL (70-99) Calcium Level 8.6 mg/dL (8.5-10.1) Magnesium Level 1.9 mg/dL (1.8-2.4) Medications Current Medications Sodium Chloride 1,000 ml @ 1,000 mls/hr 1X ONCE IV Last administered on 09/21/20at 15:28; Start 09/21/20 at 15:15; Stop 09/21/20 at 16:14; Status DC Fentanyl Citrate (Fentanyl 2ml Vial) 50 mcg 1X ONCE IVP Last administered on 09/21/20at 15:29; Start 09/21/20 at 15:15; Stop 09/21/20 at 15:16; Status DC Iohexol (Omnipaque 240 Mg/ml) 30 ml 1X ONCE PO Last administered on 09/21/20at 16:15; Start 09/21/20 at 16:15; Stop 09/21/20 at 16:18; Status DC Iohexol (Omnipaque 300 Mg/ml) 60 ml 1X ONCE IV Last administered on 09/21/20at 16:15; Start 09/21/20 at 16:15; Stop 09/21/20 at 16:18; Status DC Info (CONTRAST GIVEN -- Rx MONITORING) 1 each PRN DAILY PRN MC SEE COMMENTS; Start 09/21/20 at 16:30; Stop 09/23/20 at 16:29; Status DC Morphine Sulfate (Morphine Sulfate) 4 mg 1X ONCE IV Last administered on at 17:19; Start 09/21/20 at 17:15; Stop 09/21/20 at 17:16; Status DC Morphine Sulfate (Morphine Sulfate) 4 mg STK-MED ONCE .ROUTE ; Start 09/21/20 at 17:17; Stop 09/21/20 at 17:17; Status DC Ondansetron HCl (Zofran) 4 mg PRN Q8HRS PRN IV NAUSEA/VOMITING; Start 09/21/20 at 18:30; Stop 09/22/20 at 18:29; Status DC Morphine Sulfate (Morphine Sulfate) 4 mg PRN Q2HR PRN IV PAIN Last administered on 09/24/20at 09:52; Start 09/21/20 at 18:30; Stop 09/25/20 at 09:00 Sodium Chloride 1,000 ml @ 75 mls/hr [id number] IV Last administered on 09/22/20at 09:43; Start 09/21/20 at 18:30; Stop 09/22/20 at 18:29; Status DC Sodium Chloride 1,000 ml @ 75 mls/hr [id number] IV Last administered on 09/24/20at 01:04; Start 09/22/20 at 23:45 Active Scripts Active Reported Triamterene-Hctz 37.5-25 Mg Tb (Triamterene/Hydrochlorothiazid) 1 Each Tablet 1 Tab PO DAILY Check BP daily, may resume if BP 120/80. Follow up with Primary Care doctor. Metoprolol Tartrate 50 Mg Tablet 50 Mg PO DAILY Check BP daily, may resume if BP 120/80. Follow up with Primary Care doctor. Simvastatin 40 Mg Tablet 40 Mg PO HS LAST DOSE GIVEN: DATE:04/18/16 TIME:9:00 p.m. NEXT DOSE DUE: DATE:04/19/16 TIME:9:00 p.m. Levothyroxine Sodium 150 Mcg Tablet 150 Mcg PO DAILYAC LAST DOSE GIVEN: DATE:04/19/16 TIME:7:30 a.m. NEXT DOSE DUE: DATE:04/20/16 TIME:7:30 a.m. Vitals/I & O Vital Sign - Last 24 Hours 09/23/20 09/23/20 09/23/20 09/23/20 11:00 15:00 19:00 19:25 Temp 98.3 98.0 96.6 98.3 98.0 96.6 Pulse 68 62 71 Resp 18 18 20 B/P (MAP) 119/64 (82) 118/66 (83) 132/62 (85) Pulse Ox 95 94 96 O2 Delivery Room Air Room Air Room Air Room Air 09/23/20 09/23/20 09/23/20 09/23/20 20:05 20:35 23:00 23:46 Temp 97.7 97.7 Pulse 65 Resp 20 20 20 20 B/P (MAP) 112/53 (72) Pulse Ox 96 O2 Delivery Room Air Room Air Room Air Room Air 09/24/20 09/24/20 09/24/20 09/24/20 00:30 03:43 07:00 09:52 Temp 97.4 98.0 97.4 98.0 Pulse 82 80 Resp 18 20 18 B/P (MAP) 146/65 (92) 133/63 (86) Pulse Ox 93 95 O2 Delivery Room Air Room Air Room Air Room Air Intake and Output 09/23/20 09/23/20 09/24/20 15:00 23:00 07:00 Output Total 600 ml Balance -600 ml Justifications for Admission Other Justification DAMARIS BOWLES MD Sep 24, 2020 10:47
[2020-09-24 11:00] VITALS: BP 136/72
[2020-09-24 11:16] LABS: BASO % 1 % (0-3); EOS # 0.1 x10^3/uL (0.0-0.7); EOS % 1 % (0-3); HEMATOCRIT 39.7 % (36.0-47.0); HEMOGLOBIN 13.8 g/dL (12.0-15.5); LYMPH # 1.1 x10^3/uL (1.0-4.8); LYMPH % 16 % (24-48); MEAN CORPUSCULAR HEMOGLOBIN 33 pg (25-35); MEAN CORPUSCULAR HGB CONC 35 g/dL (31-37); MEAN CORPUSCULAR VOLUME 95 fL (79-100); MONO # 0.7 x10^3/uL (0.0-1.1); MONO % 10 % (0-9); NEUT # 4.9 x10^3/uL (1.8-7.7); NEUT % 72 % (31-73); PLATELET COUNT 154 x10^3/uL (140-400); RED CELL DISTRIBUTION WIDTH 12.5 % (11.5-14.5); WHITE BLOOD COUNT 6.8 x10^3/uL (4.0-11.0)
--- NOTE | 2020-09-24 13:38 | RAD ---
Study: XR ABDOMEN COMP ACUTE Indication: Ileus. Comparison: CT abdomen/pelvis 09/21/2020 Findings: The cardiomediastinal silhouette and diane are within normal limits. Aortic atherosclerotic calcificat ions. No lobar consolidation, layering effusion or pneumothorax. Scattered granulomas. Retained contrast within the colon. The bowel gas pattern is nonobstructive. No air-fluid level appre ciated on the upright view or pneumoperitoneum. Impression: Nonobstructive bowel gas pattern. Electronically signed by: PARTHA YANG MD (09/24/2020 1:36 PM) [facility]
[2020-09-24 15:00] VITALS: BP 140/72
[2020-09-24 19:00] VITALS: BP 129/61
[2020-09-24 23:00] VITALS: BP 118/58
[2020-09-25 03:00] VITALS: BP 136/59
[2020-09-25] MEDS: IV NORMAL SALINE 1000ML BAG 1,000 ML IV SCH (03:07)
[2020-09-25 07:00] VITALS: BP 137/66
--- NOTE | 2020-09-25 09:52 | NUR ---
SW following. Discussed with RN, pt from home, room air, clear liquid diet, COVID-19 negative. PT/OT recommending home independent. RN advised no SW needs, anticipates discharge home in the next day or two. SW will continue to follow.
--- NOTE | 2020-09-25 10:31 | PDOC ---
SURGICAL PROGRESS NOTE DATE: 09/25/20 TIME: 10:22 Subjective complaints of back pain, knee pain no nausea, having stools Vital Signs Vital Signs Date Time Temp Pulse Resp B/P (MAP) Pulse Ox O2 Delivery O2 Flow Rate FiO2 09/25/20 07:56 Room Air 09/25/20 07:00 98.0 60 14 137/66 (89) 93 98.0 I&O Intake and Output 09/25/20 07:00 Intake Total 5158 ml Balance 5158 ml Intake Oral 1280 ml IV Total 3878 ml # Voids 3 General: Alert, Oriented X3, Cooperative Abdomen: Soft Labs Laboratory Tests Test 09/24/20 09:50 White Blood Count 6.8 x10^3/uL (4.0-11.0) Red Blood Count 4.20 x10^6/uL (3.50-5.40) Hemoglobin 13.8 g/dL (12.0-15.5) Hematocrit 39.7 % (36.0-47.0) Mean Corpuscular Volume 95 fL (79-100) Mean Corpuscular Hemoglobin 33 pg (25-35) Mean Corpuscular Hemoglobin Concent 35 g/dL (31-37) Red Cell Distribution Width 12.5 % (11.5-14.5) Platelet Count 154 x10^3/uL (140-400) Neutrophils (%) (Auto) 72 % (31-73) Lymphocytes (%) (Auto) 16 % (24-48) Monocytes (%) (Auto) 10 % (0-9) Eosinophils (%) (Auto) 1 % (0-3) Basophils (%) (Auto) 1 % (0-3) Neutrophils # (Auto) 4.9 x10^3/uL (1.8-7.7) Lymphocytes # (Auto) 1.1 x10^3/uL (1.0-4.8) Monocytes # (Auto) 0.7 x10^3/uL (0.0-1.1) Eosinophils # (Auto) 0.1 x10^3/uL (0.0-0.7) Basophils # (Auto) 0.0 x10^3/uL (0.0-0.2) Sodium Level 142 mmol/L (136-145) Potassium Level 3.8 mmol/L (3.5-5.1) Chloride Level 108 mmol/L (98-107) Carbon Dioxide Level 22 mmol/L (21-32) Anion Gap 12 (6-14) Blood Urea Nitrogen 14 mg/dL (7-20) Creatinine 0.8 mg/dL (0.6-1.0) Estimated GFR (Cockcroft-Gault) 69.6 Glucose Level 82 mg/dL (70-99) Calcium Level 8.6 mg/dL (8.5-10.1) Magnesium Level 1.9 mg/dL (1.8-2.4) Problem List Problems Medical Problems: (1) Abdominal pain Status: Acute (2) Ileus Status: Acute Assessment/Plan ok to advance diet no surgical plans home per [facility] Justicifation of Admission Dx: Justifications for Admission: Justification of Admission Dx: Yes Comments: ileus KORINA SHELTON APRN Sep 25, 2020 10:31
--- NOTE | 2020-09-25 10:47 | PDOC ---
[facility] PROGRESS NOTE Date of Service DOS: DATE: 09/25/20 TIME: 10:45 Chief Complaint Chief Complaint Acute abdominal pain due to ileus versus SBO Polycythemia Prerenal azotemia ESPERANZA due to vasomotor nephropathy Admit to medicine for further management General surgery consult Advance diet as tolerated Continue IV fluids Serial abdominal exams Lovenox for DVT prophylaxis Protonix GI prophylaxis ADA diet Full code Discussed with RN and CAROLEE Disposition pending surgical evaluation Surrogate decision maker is the History of Present Illness History of Present Illness Ms Holbrook is a 75 yo female w/ PMHx chronic lower back pain who presented to ER for evaluation of abdominal pain started right before arrival. Patient feels nauseous but no vomiting. Patient has history of abdominal surgery in the past, had obstruction. Patient denies any fever, no chest pain, no COVID-19 infection exposure. Found with SBO, general surgery consulted. 09/23: No acute events overnight. Patient remains afebrile. No bowel movements reported from nursing staff. No complaints voiced at this time. Will advance diet as tolerated. Currently tolerating. Patient's chart, labs, images were reviewed and discussed with RN 09/24: No acute events overnight. Patient seen and examined bedside. Remains afebrile. Patient sitting at the side of bed and just had a bowel movement this morning. Will attempt to advance diet if okay with surgery. Patient's chart, labs, images were reviewed and discussed with RN No overnight events. As she complained of some back pain and left knee pain. Her abdominal pain is resolved. She tolerated treatment weight well for breakf ast and is asking when she can go home. Vitals/I&O Vitals/I&O: Vital Signs Date Time Temp Pulse Resp B/P (MAP) Pulse Ox O2 Delivery O2 Flow Rate FiO2 09/25/20 07:56 Room Air 09/25/20 07:00 98.0 60 14 137/66 (89) 93 98.0 I & O 09/24/20 09/24/20 09/25/20 15:00 23:00 07:00 Intake Total 880 ml 4278 ml Balance 880 ml 4278 ml Physical Exam General: Alert, Oriented X3, Cooperative Heart: Regular rate Abdomen: Soft Extremities: No clubbing, No cyanosis Skin: No rashes, No breakdown Assessment and Plan Assessmemt and Plan Problems Medical Problems: (1) Abdominal pain Status: Acute (2) Ileus Status: Acute Comment Review of Relevant I have reviewed the following items gurdeep (where applicable) has been applied. Justifications for Admission Other Justification SHREYA MACKENZIE MD Sep 25, 2020 10:47
--- NOTE | 2020-09-25 10:49 | PDOC3 ---
Discharge Summary Visit Information Date of Admission: Sep 21, 2020 Date of Discharge: Sep 25, 2020 Admitting Diagnosis: Intractable abdominal pain Final Diagnosis Problems Medical Problems: (1) Abdominal pain Status: Acute (2) Ileus Status: Acute Brief Hospital Course Allergies Allergies Coded Allergies Type Severity Reaction Last Updated Verified No Known Drug Allergies 09/05/17 No Vital Signs Vital Signs Date Time Temp Pulse Resp B/P (MAP) Pulse Ox O2 Delivery O2 Flow Rate FiO2 09/25/20 07:56 Room Air 09/25/20 07:00 98.0 60 14 137/66 (89) 93 98.0 Lab Results Laboratory Tests Test 09/24/20 09:50 White Blood Count 6.8 x10^3/uL (4.0-11.0) Red Blood Count 4.20 x10^6/uL (3.50-5.40) Hemoglobin 13.8 g/dL (12.0-15.5) Hematocrit 39.7 % (36.0-47.0) Mean Corpuscular Volume 95 fL (79-100) Mean Corpuscular Hemoglobin 33 pg (25-35) Mean Corpuscular Hemoglobin Concent 35 g/dL (31-37) Red Cell Distribution Width 12.5 % (11.5-14.5) Platelet Count 154 x10^3/uL (140-400) Neutrophils (%) (Auto) 72 % (31-73) Lymphocytes (%) (Auto) 16 % (24-48) Monocytes (%) (Auto) 10 % (0-9) Eosinophils (%) (Auto) 1 % (0-3) Basophils (%) (Auto) 1 % (0-3) Neutrophils # (Auto) 4.9 x10^3/uL (1.8-7.7) Lymphocytes # (Auto) 1.1 x10^3/uL (1.0-4.8) Monocytes # (Auto) 0.7 x10^3/uL (0.0-1.1) Eosinophils # (Auto) 0.1 x10^3/uL (0.0-0.7) Basophils # (Auto) 0.0 x10^3/uL (0.0-0.2) Sodium Level 142 mmol/L (136-145) Potassium Level 3.8 mmol/L (3.5-5.1) Chloride Level 108 mmol/L (98-107) Carbon Dioxide Level 22 mmol/L (21-32) Anion Gap 12 (6-14) Blood Urea Nitrogen 14 mg/dL (7-20) Creatinine 0.8 mg/dL (0.6-1.0) Estimated GFR (Cockcroft-Gault) 69.6 Glucose Level 82 mg/dL (70-99) Calcium Level 8.6 mg/dL (8.5-10.1) Magnesium Level 1.9 mg/dL (1.8-2.4) Brief Hospital Course Ms Holbrook is a 75 yo female w/ PMHx chronic lower back pain who presented to ER for evaluation of abdominal pain started right before arrival. Patient feels nauseous but no vomiting. Patient has history of abdominal surgery in the past, had obstruction. Patient denies any fever, no chest pain, no COVID-19 infection exposure. Found with SBO, general surgery consulted. 09/23: No acute events overnight. Patient remains afebrile. No bowel movements reported from nursing staff. No complaints voiced at this time. Will advance diet as tolerated. Currently tolerating. Patient's chart, labs, images were reviewed and discussed with RN 09/24: No acute events overnight. Patient seen and examined bedside. Remains afebrile. Patient sitting at the side of bed and just had a bowel movement this morning. Will attempt to advance diet if okay with surgery. Patient's chart, labs, images were reviewed and discussed with RN 09/25: SI joint injection by PMR as she was unable to stand w/o pain. No overnight events. After SI joint injection back and leg pain resolved. No further nausea or vomiting. She is concerned about how to prevent SBO in the future. Advised on high-fiber diet and good bowel hygiene. Consults: General surgery and PMR Problem list: Acute abdominal pain due to ileus versus SBO Polycythemia Prerenal azotemia ESPERANZA due to vasomotor nephropathy Intractable back pain Left knee and ankle pain Greater than 30 minutes spent on d/c home with self care. Will f/u with PMR outpatient Discharge Information Condition at Discharge: Improved Follow Up: Weeks (1) Disposition/Orders: D/C to Home Scheduled Levothyroxine Sodium (Levothyroxine Sodium) 150 Mcg Tablet, 150 MCG PO DAILYAC for THYROID SUPPLEMENT, #30 Ref 0 (Reported) LAST DOSE GIVEN: DATE:04/19/16 TIME:7:30 a.m. NEXT DOSE DUE: DATE:04/20/16 TIME:7:30 a.m. Entered as Reported by: BYRON KNOWLES on 03/22/161654 Last Taken: Unknown Dose on 09/21/20 Last Action: Continued on 09/25/20 1200 by SHREYA MACKENZIE MD Metoprolol Tartrate (Metoprolol Tartrate) 50 Mg Tablet, 50 MG PO DAILY for FOR HYPERTENSION, #60 Ref 0 (Reported) Check BP daily, may resume if BP 120/80. Follow up with Primary Care doctor. Entered as Reported by: BYRON KNOWLES on 03/22/161654 Last Taken: Unknown Dose on 09/21/20 Last Action: Continued on 09/25/20 1200 by SHREYA MACKENZIE MD Simvastatin (Simvastatin) 40 Mg Tablet, 40 MG PO HS for FOR CHOLESTEROL, #30 Ref 0 (Reported) LAST DOSE GIVEN: DATE:04/18/16 TIME:9:00 p.m. NEXT DOSE DUE: DATE:04/19/16 TIME:9:00 p.m. Entered as Reported by: BYRON KNOWLES on 03/22/161654 Last Taken: Unknown Dose on 09/21/20 Last Action: Continued on 09/25/20 1200 by SHREYA MACKENZIE MD Triamterene/Hydrochlorothiazid (Triamterene-Hctz 37.5-25 Mg Tb) 1 Each Tablet, 1 TAB PO DAILY, (Reported) Check BP daily, may resume if BP 120/80. Follow up with Primary Care doctor. Entered as Reported by: BYRON KNOWLES on 03/22/161654 Last Taken: Unknown Dose on 09/21/20 Last Action: Reviewed on 09/21/20 2100 by SHAKIRA KAPLAN Scheduled PRN Tramadol Hcl (Tramadol Hcl) 50 Mg Tablet, 50 MG PO PRN Q6HRS PRN for MILD TO MODERATE PAIN for 6 Days, #18 Prescribed by: SHREYA MACKENZIE MD on 09/25/20 1313 Justicifation of Admission Dx: Justifications for Admission: Justification of Admission Dx: Yes SHREYA MACKENZIE MD Sep 25, 2020 10:49
[2020-09-25 11:00] VITALS: BP 132/82
[2020-09-25] MEDS ORDERED: traMADol 50 MG TABLET PO PRN (12:00)
[2020-09-25] MEDS: METOPROLOL TART IMMED RELEASE 50 MG TABLET. PO SCH (12:11)
[2020-09-25] MEDS: LIDOCAINE (700MG/PATCH) PATCH. TD SCH (12:13)
[2020-09-25] MEDS ORDERED: TRAM50TA PO (13:12)
[2020-09-25 15:00] VITALS: BP 130/63
[2020-09-25] MEDS ORDERED: HYDROcodone/APAP 7.5/325MG 1 TAB TABLET PO PRN (16:15)
[2020-09-25] MEDS ORDERED: methylPREDNISolone ACETATE 40 MG/ML VIAL. INJ ONE (16:15)
[2020-09-25] MEDS ORDERED: methylPREDNISolone ACETATE 40 MG/ML VIAL. IM ONE (16:15)
[2020-09-25] MEDS ORDERED: tiZANidine 4 MG TABLET. PO PRN (16:15)
[2020-09-25] MEDS ORDERED: BUPIVACAINE MPF 0.25% 10 ML VIAL. IJ ONE (16:15)
--- NOTE | 2020-09-25 17:14 | PDOC4 ---
PROCEDURE Procedure At her request,I have injected painful right sacroiliac joint and right troc hanteric bursa area using 4 ml of 0.25% marcaine solution mixed with 2 ml of depo-medrol 40 mg/ 1 ml solution under aseptic skin technique with alcohol skin prep and she tolerated the procedures satisfactorily without any side effects. YIN ROUSSEAU MD Sep 25, 2020 17:14
[2020-09-25 19:00] VITALS: BP 128/51
[2020-09-25] MEDS ORDERED: SIMVASTATIN 40 MG TABLET. PO SCH (21:00)
[2020-09-25] MEDS ORDERED: PATCH REMOVAL. MC SCH (21:00)
--- NOTE | 2020-09-25 21:28 | CONS ---
DATE OF CONSULTATION: 09/25/2020 ATTENDING PHYSICIAN: Dr. Tavera. REASON FOR CONSULTATION: The patient was seen at the request of Dr. Decker for rehab evaluation about her back and hip pain. HISTORY OF PRESENT ILLNESS: This is a 75-year-old right-handed female, retired, lives alone. The patient was admitted on 09/22/2020 with abdominal pain starting on the day of admission. She had abdominal surgery in the past, had obstruction. 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 Family history of lung carcinoma and kidney disease. She is a current every day smoker, takes alcohol on occasion, not known allergic to any medication. Since admission, she had nonobstructive bowel gas pattern as per KUB and CT scan of the abdomen and pelvis revealed dilated jejunal loops without any obstruction and degenerative changes were seen in the lower thoracic and lumbar vertebrae along with both hips. The patient admits abdominal pain is much better for the last day or so, she started having lower back pain with radiation to left foot and also a right hip. The patient had a cane and walker at home, but does not use them all the time. PHYSICAL EXAMINATION: Today revealed an elderly female. She is alert, oriented to time, place, person and circumstance and follows commands appropriately. The patient had painful limited movements of her lumbar spine to a significant degree. Tenderness to palpation over sacroiliac joint area and right trochanteric bursa. The patient had painful range of motion of both hip joints and knee joints and ankle joints. She had equal perception of touch and pinprick sensation bilaterally. Deep tendon reflexes are 2+ at the knees, absent at both ankles, right hip pain reproduced by resist to right hip abduction. She is independent, rolling from side to side. I have not tested her transfers or ambulation skills at this time. Her skin is intact at this time. Straight leg raising test is questionably positive on the right side. ASSESSMENT: Elderly female with degenerative disk disease and degenerative joint disease of lumbar vertebrae with lumbar radiculitis and also right trochanteric bursitis with increased pain since admission with abdominal pain, clinical evidence of peripheral neuropathy, right trochanteric bursitis. RECOMMENDATION: To proceed with injecting painful left sacroiliac joint and right trochanteric bursa to help ease her pain, to consider starting her on Medrol Dosepak and MRI scan of her lumbar vertebrae if the pain persists. Agree with the plans for physical therapy, to also use abdominal binder as lumbar corset for use while up. Dr. Decker appreciate asking me to participate in the care of this interesting patient. I will be glad to see her for followup with you on as needed basis. YIN ROUSSEAU MD DR: WILL/alexandria JOB#: [id number] / [id number]
[2020-09-25 22:48] VITALS: BP 101/59
[2020-09-26 02:51] VITALS: BP 109/56
[2020-09-26] MEDS ORDERED: LEVOTHYROXINE 150 MCG TABLET PO SCH (06:00)
[2020-09-26 07:00] VITALS: BP 131/57
--- NOTE | 2020-09-26 07:55 | PDOC ---
[facility] PROGRESS NOTE Date of Service DOS: DATE: 09/26/20 TIME: 07:53 Chief Complaint Chief Complaint A/P: Acute abdominal pain due to ileus versus SBO Polycythemia Prerenal azotemia ESPERANZA due to vasomotor nephropathy Intractable lower back pain Left knee pain. FEN - ADA diet Full code Discussed with RN and SW Disposition pending surgical evaluation Surrogate decision maker is the History of Present Illness History of Present Illness Ms Holbrook is a 75 yo female w/ PMHx chronic lower back pain who presented to ER for evaluation of abdominal pain started right before arrival. Patient feels nauseous but no vomiting. Patient has history of abdominal surgery in the past, had obstruction. Patient denies any fever, no chest pain, no COVID-19 infection exposure. Found with SBO, general surgery consulted. 09/23: No acute events overnight. Patient remains afebrile. No bowel movements reported from nursing staff. No complaints voiced at this time. Will advance diet as tolerated. 09/24: No acute events overnight. Patient seen and examined bedside. Remains afebrile. Patient sitting at the side of bed and just had a bowel movement this morning. 09/25: No overnight events. She complained of severe back pain and left knee pain. Her abdominal pain is resolved. SI joint injection by PMR as she was unable to stand w/o pain. No overnight events. After SI joint injection back and leg pain resolved. No further nausea or vomiting. She is concerned about how to prevent SBO in the future. Advised on high-fiber diet and good bowel hygiene. Vitals/I&O Vitals/I&O: Vital Signs Date Time Temp Pulse Resp B/P (MAP) Pulse Ox O2 Delivery O2 Flow Rate FiO2 09/26/20 07:00 97.9 60 18 131/57 (81) 95 Room Air 97.9 I & O 09/25/20 09/25/20 09/26/20 15:00 23:00 07:00 Intake Total 460 ml 240 ml 300 ml Output Total 2 ml Balance 460 ml 240 ml 298 ml Physical Exam General: Alert, Oriented X3, Cooperative Heart: Regular rate Abdomen: Soft Extremities: No clubbing, No cyanosis Skin: No rashes, No breakdown Assessment and Plan Assessmemt and Plan Problems Medical Problems: (1) Abdominal pain Status: Acute (2) Ileus Status: Acute Comment Review of Relevant I have reviewed the following items gurdeep (where applicable) has been applied. Medications: Current Medications Medications (Trade) Dose Ordered Sig/Sushma Route PRN Reason Start Time Stop Time Status Last Admin Dose Admin Levothyroxine Sodium (Synthroid) 150 mcg DAILY06 PO 09/26/20 06:00 09/26/20 05:53 Metoprolol Tartrate (Lopressor) 50 mg DAILY PO 09/25/20 13:00 09/25/20 12:11 Simvastatin (Zocor) 40 mg HS PO 09/25/20 21:00 09/25/20 20:38 Lidocaine (Lidoderm) 1 patch DAILY TD 09/25/20 12:00 09/25/20 12:13 Miscellaneous (Lidoderm Patch Removal) 1 ea QHS MC 09/25/20 21:00 09/25/20 20:39 Tramadol HCl (Ultram) 50 mg PRN Q6HRS PRN PO MILD TO MODERATE PAIN 09/25/20 12:00 09/25/20 12:12 Methylprednisolone Acetate (DEPO-Medrol 40MG VIAL) 40 mg 1X ONCE IM 09/25/20 16:15 09/25/20 16:23 DC 09/25/20 16:15 Methylprednisolone Acetate (DEPO-Medrol 40MG VIAL) 40 mg 1X ONCE INJ 09/25/20 16:15 09/25/20 16:23 DC 09/25/20 16:15 Bupivacaine HCl (Sensorcaine-Mpf 0.25%) 10 ml 1X ONCE IJ 09/25/20 16:15 09/25/20 16:23 DC 09/25/20 16:15 Acetaminophen/ Hydrocodone Bitart (Lortab 7.5/325) 1 tab PRN Q6HRS PRN PO MODERATE TO SEVERE PAIN 09/25/20 16:15 09/25/20 16:39 Tizanidine HCl (Zanaflex) 4 mg PRN Q8HRS PRN PO MUSCLE SPASMS 09/25/20 16:15 09/25/20 16:38 Justifications for Admission Other Justification SHREYA MACKENZIE MD Sep 26, 2020 07:55
[2020-09-26] MEDS: LIDOCAINE (700MG/PATCH) PATCH. TD SCH (08:02)
[2020-09-26 08:03] VITALS: BP 131/57
[2020-09-26] MEDS: METOPROLOL TART IMMED RELEASE 50 MG TABLET. PO SCH (08:03)
--- NOTE | 2020-09-26 09:29 | PDOC ---
PROGRESS NOTES Date of Service DATE: 09/26/20 TIME: 09:25 Subjective Subjective She feels better and wants to go home. Objective Objective Vital Signs Date Time Temp Pulse Resp B/P (MAP) Pulse Ox O2 Delivery O2 Flow Rate FiO2 09/26/20 08:03 60 131/57 09/26/20 07:00 97.9 18 95 Room Air 97.9 Intake and Output 09/26/20 07:00 Intake Total 1000 ml Output Total 2 ml Balance 998 ml Intake Oral 1000 ml Output Urine Total 2 ml # Voids 1 Physical Exam Physical Exam She is sitting up in bed side chair and she is independent with her mobility and no tenderness to palpation over left ankle. Assessment Assessment Problems Medical Problems: (1) Abdominal pain Status: Acute (2) Ileus Status: Acute Plan Plan of Half-Way with out patient follow up when medically stable. Comment Review of Relevant I have reviewed the following items gurdeep (where applicable) has been applied. Labs Laboratory Tests Test 09/24/20 09:50 White Blood Count 6.8 x10^3/uL (4.0-11.0) Red Blood Count 4.20 x10^6/uL (3.50-5.40) Hemoglobin 13.8 g/dL (12.0-15.5) Hematocrit 39.7 % (36.0-47.0) Mean Corpuscular Volume 95 fL (79-100) Mean Corpuscular Hemoglobin 33 pg (25-35) Mean Corpuscular Hemoglobin Concent 35 g/dL (31-37) Red Cell Distribution Width 12.5 % (11.5-14.5) Platelet Count 154 x10^3/uL (140-400) Neutrophils (%) (Auto) 72 % (31-73) Lymphocytes (%) (Auto) 16 % (24-48) Monocytes (%) (Auto) 10 % (0-9) Eosinophils (%) (Auto) 1 % (0-3) Basophils (%) (Auto) 1 % (0-3) Neutrophils # (Auto) 4.9 x10^3/uL (1.8-7.7) Lymphocytes # (Auto) 1.1 x10^3/uL (1.0-4.8) Monocytes # (Auto) 0.7 x10^3/uL (0.0-1.1) Eosinophils # (Auto) 0.1 x10^3/uL (0.0-0.7) Basophils # (Auto) 0.0 x10^3/uL (0.0-0.2) Sodium Level 142 mmol/L (136-145) Potassium Level 3.8 mmol/L (3.5-5.1) Chloride Level 108 mmol/L (98-107) Carbon Dioxide Level 22 mmol/L (21-32) Anion Gap 12 (6-14) Blood Urea Nitrogen 14 mg/dL (7-20) Creatinine 0.8 mg/dL (0.6-1.0) Estimated GFR (Cockcroft-Gault) 69.6 Glucose Level 82 mg/dL (70-99) Calcium Level 8.6 mg/dL (8.5-10.1) Magnesium Level 1.9 mg/dL (1.8-2.4) Medications Current Medications Sodium Chloride 1,000 ml @ 1,000 mls/hr 1X ONCE IV Last administered on 09/21/20at 15:28; Start 09/21/20 at 15:15; Stop 09/21/20 at 16:14; Status DC Fentanyl Citrate (Fentanyl 2ml Vial) 50 mcg 1X ONCE IVP Last administered on 09/21/20at 15:29; Start 09/21/20 at 15:15; Stop 09/21/20 at 15:16; Status DC Iohexol (Omnipaque 240 Mg/ml) 30 ml 1X ONCE PO Last administered on 09/21/20at 16:15; Start 09/21/20 at 16:15; Stop 09/21/20 at 16:18; Status DC Iohexol (Omnipaque 300 Mg/ml) 60 ml 1X ONCE IV Last administered on 09/21/20at 16:15; Start 09/21/20 at 16:15; Stop 09/21/20 at 16:18; Status DC Info (CONTRAST GIVEN -- Rx MONITORING) 1 each PRN DAILY PRN MC SEE COMMENTS; Start 09/21/20 at 16:30; Stop 09/23/20 at 16:29; Status DC Morphine Sulfate (Morphine Sulfate) 4 mg 1X ONCE IV Last administered on 09/21/20at 17:19; Start 09/21/20 at 17:15; Stop 09/21/20 at 17:16; Status DC Morphine Sulfate (Morphine Sulfate) 4 mg STK-MED ONCE .ROUTE ; Start 09/21/20 at 17:17; Stop 09/21/20 at 17:17; Status DC Ondansetron HCl (Zofran) 4 mg PRN Q8HRS PRN IV NAUSEA/VOMITING; Start 09/21/20 at 18:30; Stop 09/22/20 at 18:29; Status DC Morphine Sulfate (Morphine Sulfate) 4 mg PRN Q2HR PRN IV PAIN Last administered on 09/24/20at 21:30; Start 09/21/20 at 18:30; Stop 09/25/20 at 09:03; Status DC Sodium Chloride 1,000 ml @ 75 mls/hr [id number] IV Last administered on 09/22/20at 09:43; Start 09/21/20 at 18:30; Stop 09/22/20 at 18:29; Status DC Sodium Chloride 1,000 ml @ 75 mls/hr [id number] IV Last administered on 09/25/20at 03:07; Start 09/22/20 at 23:45; Stop 09/25/20 at 16:14; Status DC Levothyroxine Sodium (Synthroid) 150 mcg DAILY06 PO Last administered on 09/26/20at 05:53; Start 09/26/20 at 06:00 Metoprolol Tartrate (Lopressor) 50 mg DAILY PO Last administered on 09/26/20at 08:03; Start 09/25/20 at 13:00 Simvastatin (Zocor) 40 mg HS PO Last administered on 09/25/20at 20:38; Start 09/25/20 at 21:00 Lidocaine (Lidoderm) 1 patch DAILY TD Last administered on 09/26/20at 08:02; Start 09/25/20 at 12:00 Miscellaneous (Lidoderm Patch Removal) 1 ea QHS MC Last administered on 09/25/20at 20:39; Start 09/25/20 at 21:00 Tramadol HCl (Ultram) 50 mg PRN Q6HRS PRN PO MILD TO MODERATE PAIN Last administered on 09/25/20at 12:12; Start 09/25/20 at 12:00 Methylprednisolone Acetate (DEPO-Medrol 40MG VIAL) 40 mg 1X ONCE IM Last administered on 09/25/20at 16:15; Start 09/25/20 at 16:15; Stop 09/25/20 at 16:23; Status DC Methylprednisolone Acetate (DEPO-Medrol 40MG VIAL) 40 mg 1X ONCE INJ Last administered on 09/25/20at 16:15; Start 09/25/20 at 16:15; Stop 09/25/20 at 16:23; Status DC Bupivacaine HCl (Sensorcaine-Mpf 0.25%) 10 ml 1X ONCE IJ Last administered on 09/25/20at 16:15; Start 09/25/20 at 16:15; Stop 09/25/20 at 16:23; Status DC Acetaminophen/ Hydrocodone Bitart (Lortab 7.5/325) 1 tab PRN Q6HRS PRN PO MODE RATE TO SEVERE PAIN Last administered on 09/25/20at 16:39; Start 09/25/20 at 16:15 Tizanidine HCl (Zanaflex) 4 mg PRN Q8HRS PRN PO MUSCLE SPASMS Last administered on 09/25/20at 16:38; Start 09/25/20 at 16:15 Active Scripts Active Tramadol Hcl 50 Mg Tablet 50 Mg PO PRN Q6HRS PRN 6 Days Reported Triamterene-Hctz 37.5-25 Mg Tb (Triamterene/Hydrochlorothiazid) 1 Each Tablet 1 Tab PO DAILY Check BP daily, may resume if BP 120/80. Follow up with Primary Care doctor. Metoprolol Tartrate 50 Mg Tablet 50 Mg PO DAILY Check BP daily, may resume if BP 120/80. Follow up with Primary Care doctor. Simvastatin 40 Mg Tablet 40 Mg PO HS LAST DOSE GIVEN: DATE:04/18/16 TIME:9:00 p.m. NEXT DOSE DUE: DATE:04/19/16 TIME:9:00 p.m. Levothyroxine Sodium 150 Mcg Tablet 150 Mcg PO DAILYAC LAST DOSE GIVEN: DATE:04/19/16 TIME:7:30 a.m. NEXT DOSE DUE: DATE:04/20/16 TIME:7:30 a.m. Vitals/I & O Vital Sign - Last 24 Hours 09/25/20 09/25/20 09/25/20 09/25/20 11:00 12:11 15:00 19:00 Temp 98.8 98.0 97.8 98.8 98.0 97.8 Pulse 63 63 59 54 Resp 16 16 17 B/P (MAP) 132/82 (99) 132/82 130/63 (85) 128/51 (76) Pulse Ox 94 96 93 O2 Delivery Room Air Room Air Room Air 09/25/20 09/25/20 09/26/20 09/26/20 19:30 22:48 02:51 07:00 Temp 97.8 97.8 97.9 97.8 97.8 97.9 Pulse 58 53 60 Resp 17 17 18 B/P (MAP) 101/59 (73) 109/56 (73) 131/57 (81) Pulse Ox 95 95 95 O2 Delivery Room Air Room Air Room Air Room Air 09/26/20 08:03 Pulse 60 B/P (MAP) 131/57 Intake and Output 09/25/20 09/25/20 09/26/20 15:00 23:00 07:00 Intake Total 460 ml 240 ml 300 ml Output Total 2 ml Balance 460 ml 240 ml 298 ml Justifications for Admission Other Justification YIN ROUSSEAU MD Sep 26, 2020 09:29
--- NOTE | 2020-09-26 09:44 | SNU/HH DC ---
DISCHARGE WITH HOME HEALTH DISCHARGE INFORMATION: Discharge Date: Sep 26, 2020 Final Diagnosis: Problems Medical Problems: (1) Abdominal pain Status: Acute (2) Ileus Status: Acute Condition on Discharge: Stable CODE STATUS: Code Status: Full HOME HEALTH: Face to Face: I certify this patient is under my care and that I, or a nurse practitioner or physician's practice assistant working with me, had a face to face encounter that meets the physician face to face encounter requirements with this patient on 09/26/2020. Medical Complications: DJD Halfway For: Assess & Educate Safety, Assess/Skilled Observatio RN For Eval/Treatment: Yes Physical Therapy For: Evalulation/Treatment Occupational Therapy For: Evaluation/Treatment Pt Meets Homebound Status: Unsteady balance w/ amb,, Fatigue w/ amb. POST DISCHARGE ORDERS: Activity Instructions for Disc: Activity as tolerated, Progressive ambulation Weight Bearing Status after Di: Full weight bearing Bathing Instructions: Shower-keep dressing dry Wound/Incision Care: Ice to area for comfort, Keep wound/cast CDI, Keep wound elevated, Do not change dressing CHECKS AFTER DISCHARGE: Checks after discharge: Check blood press - daily TREATMENT/EQUIPMENT ORDERS: Adaptive Equipment Issued: Front wheeled walker CERTIFICATION STATEMENT: Certification Statement: Certification Statement: Based on the above finding, I certify that this patient is confined to the home and needs intermittent fpc care, physical therapy and/or speech therapy, or continues to need occupational therapy.~ This patient is under my care, and I have initiated the establishment of the plan of care.~ This patient will be followed by myself or a community physician who will periodically review the plan of care. Home Meds Active Scripts Tramadol Hcl (TRAMADOL HCL) 50 Mg Tablet, 50 MG PO PRN Q6HRS PRN for MILD TO MODERATE PAIN for 6 Days, #18 TAB Prov:SHREYA MACKENZIE MD 09/25/20 Reported Medications Triamterene/Hydrochlorothiazid (TRIAMTERENE-HCTZ 37.5-25 MG TB) 1 Each Tablet, 1 TAB PO DAILY, TAB Check BP daily, may resume if BP 120/80. Follow up with Primary Care doctor. 03/22/16 Metoprolol Tartrate (METOPROLOL TARTRATE) 50 Mg Tablet, 50 MG PO DAILY for FOR HYPERTENSION, #60 TAB 0 Refills Check BP daily, may resume if BP 120/80. Follow up with Primary Care doctor. 03/22/16 Simvastatin (SIMVASTATIN) 40 Mg Tablet, 40 MG PO HS for FOR CHOLESTEROL, #30 TAB 0 Refills LAST DOSE GIVEN: DATE:04/18/16 TIME:9:00 p.m. NEXT DOSE DUE: DATE:04/19/16 TIME:9:00 p.m. 03/22/16 Levothyroxine Sodium (LEVOTHYROXINE SODIUM) 150 Mcg Tablet, 150 MCG PO DAILYAC for THYROID SUPPLEMENT, #30 TAB 0 Refills LAST DOSE GIVEN: DATE:04/19/16 TIME:7:30 a.m. NEXT DOSE DUE: DATE:04/20/16 TIME:7:30 a.m. 03/22/16 SHREYA MACKENZIE MD Sep 26, 2020 09:44
--- NOTE | 2020-09-26 09:54 | NUR ---
Discharge instructions and belongings reviewed with patient, verbalized understanding. Patient will be escorted out via wheelchair by GLASS SCULLION.
--- NOTE | 2020-09-26 09:59 | NUR ---
SW following. Discussed with RN, pt was not able to get up yesterday to discharge. Dr. Valenzuela consulted - pt given injections. Pt much better today. Discharge order for home with home health. SW met with pt, she does not have a preference of provider and does not want to wait for SW to find one. Pt agreeable to SW finding provider in network and can discharge home. SW checking with [facility] if they are in network. RN notified pt can leave. Addendum: 09/26/20 at 1500 by CHERELLE DYKES SW [facility] is in network with pt's insurance. Pt accepted with [facility], they will see pt tomorrow (09/27/20). No further SW needs. Pt has discharged home already.
== END 2020-09-26 10:27 | disposition home health service (06) | DRG 388 ==
LOC: ER 14:28 → 4 NORTH 18:05
PROVIDERS: ADMIT Family Medicine; ATTEND Family Medicine
PROC: 3E0U33Z Introduction of Anti-inflammatory into Joints, Percutaneous Approach (ICD-10-PCS; principal; 2020-09-25)
PROC: 3E0U3BZ Introduction of Anesthetic Agent into Joints, Percutaneous Approach (ICD-10-PCS; 2020-09-25)
DX: K56.7 Ileus, unspecified (principal); N17.0 Acute kidney failure with tubular necrosis; D75.1 Secondary polycythemia; E03.9 Hypothyroidism, unspecified; E78.00 Pure hypercholesterolemia, unspecified; E78.5 Hyperlipidemia, unspecified; F17.200 Nicotine dependence, unspecified, uncomplicated; G62.9 Polyneuropathy, unspecified; I10 Essential (primary) hypertension; M51.16 Intervertebral disc disorders with radiculopathy, lumbar region; G89.29 Other chronic pain; Z20.822 Contact with and (suspected) exposure to COVID-19; M70.61 Trochanteric bursitis, right hip; Z80.1 Family history of malignant neoplasm of trachea, bronchus and lung; Z83.3 Family history of diabetes mellitus; Z90.49 Acquired absence of other specified parts of digestive tract; Z90.710 Acquired absence of both cervix and uterus; Z95.5 Presence of coronary angioplasty implant and graft; Z80.9 Family history of malignant neoplasm, unspecified; Z84.1 Family history of disorders of kidney and ureter
CPT/HCPCS: 36415; 74022; 74177; 80048; 80053; 83690; 83735; 84443; 85025; 87426; 96361; 96374; 96375; J1030; J2270; J3010; J3490; J7030; Q9966; Q9967; U0003; 97110-GP; 97116-GP; 97530-GP; 97535-GO; 99285-25; G0378